=== PATIENT | male | born 1970 | race Caucasian/White ===

== ENCOUNTER 2017-06-15 15:09 | Emergency (ER) | payer MEDICAID ==
[~2017-06-15] VITALS: Ht 180.3 cm; Wt 74.8 kg
[2017-06-15 15:11] VITALS: BP 134/92
--- NOTE | 2017-06-15 15:25 | NUR ---
INDIRA BONDS BEDSIDE WITH PT.
--- NOTE | 2017-06-15 15:46 | NUR ---
Patient discharged to home in stable condition. Written and verbal after care instructions given. Patient verbalizes understanding of instruction. VSS upon discharge. Pt ambulated with steady gait out of ER.
== END 2017-06-15 15:50 | disposition home or self-care (01) ==
LOC: ER 15:12
DX: F31.9 Bipolar disorder, unspecified (principal); F17.200 Nicotine dependence, unspecified, uncomplicated; Z76.0 Encounter for issue of repeat prescription
CPT/HCPCS: A4606; Z7610